=== PATIENT | female | born 1995 | race Caucasian/White ===

== ENCOUNTER 2018-03-08 16:43 | Emergency (ER) | payer BC ==
[~2018-03-08] VITALS: Ht 170.2 cm; Wt 80.0 kg
[2018-03-08 16:49] VITALS: BP 118/69
[2018-03-08] MEDS ORDERED: DIPH,PERTUSS(ACELL),TET VAC/PF 0.5 ML IM-VACC ONE ×2 (17:54→18:00)
== END 2018-03-08 18:03 | disposition home or self-care (01) ==
LOC: ED 17:30
DX: S05.01XA Injury of conjunctiva and corneal abrasion without foreign body, right eye, initial encounter (principal); X58.XXXA Exposure to other specified factors, initial encounter; Y93.89 Activity, other specified; Y92.89 Other specified places as the place of occurrence of the external cause; Y99.8 Other external cause status
CPT/HCPCS: 90715; 96372; 99283

== ENCOUNTER 2021-06-25 14:56 | Emergency (ER) | payer BC, MEDICAID ==
[~2021-06-25] VITALS: Ht 170.2 cm; Wt 89.0 kg
--- NOTE | 2021-06-25 14:59 | NUR ---
PATIENT ARRIVES WITH [employer] AFTER A MIGRAINE AND NAUSEA REPORTED AT HOME. SHE WENT TO [facility] TODAY AND WAS NOT DISCHARGED WITH MEDS; SHE THEN WENT HOME AND HEADACHE PERSISTED SO SHE CAME BACK
--- NOTE | 2021-06-25 15:03 | NUR ---
PATIENT STATES HX METH. SHE IS WANTING A PHONE TO CALL BOYFRIEND AND REQUESTING WATER AND SNACKS NO NAUSEA OR VOMITING SEEN.
--- NOTE | 2021-06-25 15:03 | NUR ---
requested records from [facility].
--- NOTE | 2021-06-25 15:07 | NUR ---
PATIENT WENT TO [facility] FIRST TIME FOUR DAYS AGO FOR MIGRAINE, FINE FOR 12 HOURS THEN MIGRAINE CAME BACK SO WENT TO URGENT CARE THREE DAYS AGO THEY SENT HER TO ER SO THEY WENT TO [facility]. THEN SHE WENT BACK TO [facility] TODAY, AND THEY DC AND THEN MIGRAINE KEEPS COMING BACK - THIS PER BOYFRIEND AT BEDSIDE.
[2021-06-25] MEDS ORDERED: DEXAMETHASONE 4 MG/ML, 1ML IVPush ONE (15:30)
[2021-06-25] MEDS ORDERED: METOCLOPRAMIDE 5 MG/ML, 2ML IVPush ONE (15:30)
[2021-06-25] MEDS ORDERED: SODIUM CHLORIDE 0.9% 1,000ML IVBOLUS ONE (15:30)
[2021-06-25] MEDS ORDERED: LIDOCAINE 1%-EPI 1:100K, 20ML INFIL ONE (15:30)
[2021-06-25] MEDS ORDERED: DIPHENHYDRAMINE 50 MG/ML, 1ML IV ONE (15:30)
[2021-06-25] MEDS ORDERED: DIPHENHYDRAMINE 50 MG/ML, 1ML ONE (15:51)
[2021-06-25] MEDS ORDERED: DEXAMETHASONE 4 MG/ML, 1ML ONE (15:51)
[2021-06-25] MEDS ORDERED: METOCLOPRAMIDE 5 MG/ML, 2ML ONE (15:51)
[2021-06-25] MEDS ORDERED: FAMOTIDINE 20 MG/2 ML ONE (15:54)
[2021-06-25] MEDS ORDERED: DEXAMETHASONE 4 MG TABLET ONE (15:59)
[2021-06-25] MEDS ORDERED: PROMETHAZINE 25 MG/ML, 1ML ONE (15:59)
[2021-06-25] MEDS ORDERED: KETOROLAC 30 MG/1 ML ONE (15:59)
[2021-06-25] MEDS ORDERED: DEXAMETHASONE 4 MG/ML, 1ML PO ONE (16:00)
[2021-06-25] MEDS ORDERED: PROMETHAZINE 25 MG/ML, 1ML IM ONE (16:00)
[2021-06-25] MEDS ORDERED: KETOROLAC 30 MG/1 ML IM ONE (16:00)
[2021-06-25] MEDS ORDERED: DEXAMETHASONE 4 MG/ML, 5ML ONE (16:07)
--- NOTE | 2021-06-25 16:10 | NUR ---
UNABLE TO GET IV AFTER 3 ATTEMPS, KAILA ATTEMPTED WITH YLTRASOUND, AND NOT SUCCSESSFUL. LET MD KNOW AND MEDS ORDERED IM/PO AT THIS TIME
[2021-06-25] MEDS ORDERED: LIDOCAINE-MPF 1%, 5ML ONE (16:16)
[2021-06-25] MEDS ORDERED: LIDOCAINE 1%-EPI 1:100K, 20ML ONE (16:17)
--- NOTE | 2021-06-25 16:28 | NUR ---
patient clean catch urine sent. patient has dad at bedside. medicated
[2021-06-25 16:32] LABS: MICROSCOPIC NOT IND
--- NOTE | 2021-06-25 17:17 | NUR ---
dad pulled me aside and told me that Jayashree has been using heavy meth and xanax for past two years he believes largely because of her boyfriend. I asked if son was safe and he said that son lives primarly with a good family friend, and Jayashree helps sporatically.
--- NOTE | 2021-06-25 17:23 | NUR ---
patient went to ct scan
--- NOTE | 2021-06-25 18:00 | NUR ---
lab alerted me they attempted multiple times to draw patient, to no avail. let md know. patient requesting food.
[2021-06-25 18:04] VITALS: BP 137/85
--- NOTE | 2021-06-25 18:12 | NUR ---
will get patient food after lumber puncture
--- NOTE | 2021-06-25 18:50 | NUR ---
got patient crackers and water
--- NOTE | 2021-06-25 19:05 | NUR ---
report to TIFFANIE Lao. patient in bed rails up.
--- NOTE | 2021-06-25 19:06 | NUR ---
patient left for LP
[2021-06-25 20:09] LABS: GLUCOSE, CSF 52 mg/dL (40-80); TOTAL PROTEIN,CSF 102 mg/dL (15-45)
--- NOTE | 2021-06-25 20:38 | NUR ---
PT STATED SHE WANTED TO LEAVE TO SMOKE A CIGARETTE, PT EDUCATED ON NEED TO STAY AND NOT LEAVE TO SMOKE. PT STATED "WATCH ME" AND WALKED OUT OF BUILDING TO SMOKE. PT'S BOYFRIEND STILL AT BEDSIDE WITH PT'S PURSE.
--- NOTE | 2021-06-25 20:59 | NUR ---
REPORT TO TIFFANIE SANCHEZ.
== END 2021-06-25 21:17 | disposition home or self-care (01) ==
LOC: ED 14:57
DX: R51.9 Headache, unspecified (principal); F15.10 Other stimulant abuse, uncomplicated; F17.200 Nicotine dependence, unspecified, uncomplicated; Z20.822 Contact with and (suspected) exposure to COVID-19
CPT/HCPCS: 62328; 70450; 81003; 82945; 84157; 87070; 87205; 89051; 96372; 99285; J1100; J1885; J2550; U0003; U0005